=== PATIENT | female | born 1995 | race Caucasian/White ===

== ENCOUNTER 2019-07-09 03:27 | Emergency (ER) | payer BC ==
[2019-07-09] MEDS ORDERED: DEXAMETHASONE SOD PHOS INJ 10 MG/1 ML VIAL IV ONE (04:57)
[2019-07-09] MEDS ORDERED: KETOROLAC TROMETHAMINE INJ/PF 30 MG/1 ML SDV IV ONE (04:57)
--- NOTE | 2019-07-09 04:59 | ER Document Report ---
ED ENT - General Chief Complaint: Other Stated Complaint: THROAT ABSTRUCTION Time Seen by Provider: 07/09/19 04:49 Notes: Patient is a 23-year-old female that comes to the emergency department for chief complaint of sore throat and the sensation of something going down her throat. She states she checked the mirror and her uvula looked bigger, red, and swollen. She denies fever/chills, itching, difficulty breathing or swallowing. She denies any past medical history except for ADHD, medicated. She denies . She denies any surgeries. Mother at bedside. TRAVEL OUTSIDE OF THE [place] IN LAST 30 DAYS: No - Related Data Allergies/Adverse Reactions: No Known Allergies Allergy (Unverified 07/09/19 05:18) Past Medical History - General Information source: Patient - Social History Smoking Status: Never Smoker Frequency of alcohol use: None Drug Abuse: None Lives with: Family Family History: Reviewed & Not Pertinent - Medical History Medical History: Negative - Immunizations Hx Diphtheria, Pertussis, Tetanus Vaccination: Yes Review of Systems - Review of Systems Constitutional: No symptoms reported EENT: See HPI Cardiovascular: No symptoms reported Respiratory: No symptoms reported Gastrointestinal: No symptoms reported Genitourinary: No symptoms reported Female Genitourinary: No symptoms reported Musculoskeletal: No symptoms reported Skin: No symptoms reported Hematologic/Lymphatic: No symptoms reported Neurological/Psychological: No symptoms reported Physical Exam - Vital signs Vitals: Temp Pulse Resp BP Pulse Ox 98.0 F 84 16 131/75 H 98 07/09/19 03:32 07/09/19 03:32 07/09/19 03:32 07/09/19 03:32 07/09/19 03:32 - Notes Notes: GENERAL: Alert, interacts well. She is leaning forward a lot. HEAD: Normocephalic, atraumatic. EYES: Pupils equal, round, and reactive to light. Extraocular movements intact. ENT: Oral mucosa moist, tongue midline. Uvula is slightly swollen and elongated with erythema. Soft palate, tonsils unremarkable, airways patent, oral/pharyngeal exam is otherwise unremarkable NECK: Full range of motion. Supple. Trachea midline. LUNGS: Clear to auscultation bilaterally, no wheezes, rales, or rhonchi. No respiratory distress. HEART: Regular rate and rhythm. No murmur ABDOMEN: Soft, non-tender. Non-distended. EXTREMITIES: Moves all 4 extremities spontaneously. No edema, normal radial and dorsalis pedis pulses bilaterally. No cyanosis. BACK: no cervical, thoracic, lumbar midline tenderness. No saddle anesthesia, normal distal neurovascular exam. NEUROLOGICAL: Alert and oriented x3. Normal speech. Cranial nerves II through XII grossly intact. SKIN: Warm, dry, normal turgor. No rashes or lesions noted. Course - Re-evaluation Re-evalutation: On initial presentation patient has erythema and some swelling of the uvula, however she is not in any distress, she is swallowing easily, she is tolerating her secretions well, she denies shortness of breath or difficulty breathing. Oral pharyngeal exam otherwise unremarkable. She has no fever. Patient was discussed with Dr. Muhammad. Patient was given dexamethasone, Toradol, and Unasyn. On first evaluation she did not notice a change, however she states that before she was given the Benadryl and Pepcid subsequently she started feeling improvement. Strep is neg ative, CBC unremarkable, test is negative. Most likely she is feeling the benefits of the dexamethasone, however the appearance is infectious and this is not appear to be angioedema. As result I discussed options with patient. She elects for penicillin G IM, she was given this, she will be taking cetirizine at home, I discussed follow-up and strict return precautions. Patient states satisfaction and agreement with plan. - Vital Signs Vital signs: Temp Pulse Resp BP Pulse Ox 97.7 F 65 16 116/64 98 07/09/19 05:25 07/09/19 05:25 07/09/19 05:25 07/09/19 05:25 07/09/19 05:25 - Laboratory Result Diagrams: 07/09/19 05:20 Discharge - Discharge Clinical Impression: Uvulitis Condition: Stable Disposition: HOME, SELF-CARE Additional Instructions: You have uvulitis, inflammation/infection of the uvula. You have been covered for suspected infection, you have been given dexamethasone and this should last in your system for a few days, however I also recommend that you take [id number] cetirizine because the exact cause is uncertain at this time. Follow-up with primary care. Return if you worsen including difficulty swallowing or breathing, return for increased pain, fever/chills, or any other concerning or worsening symptoms.
[2019-07-09 05:36] LABS: HEMATOCRIT 41.7 % (36.0-47.0); HEMOGLOBIN 14.1 g/dL (12.0-15.5); LYMPHOCYTES % (AUTO) 33.2 % (13-45); MEAN CORPUSCULAR HEMOGLOBIN 30.8 pg (27.0-33.4); MEAN CORPUSCULAR HGB CONC 33.7 g/dL (32.0-36.0); MEAN CORPUSCULAR VOLUME 91 fl (80-97); PLATELET COUNT 282 10^3/uL (150-450); RED BLOOD COUNT 4.57 10^6/uL (3.72-5.28); RED CELL DISTRIBUTION WIDTH 13.8 % (11.5-14.0); SEGMENTED NEUTROPHILS % (AUTO) 53.7 % (42-78); WHITE BLOOD COUNT 9.4 10^3/uL (4.0-10.5)
[2019-07-09 05:37] LABS: ABSOLUTE EOSINOPHILS # (AUTO) 0.3 10^3/uL (0.0-0.6); ABSOLUTE LYMPHOCYTES (AUTO) 3.1 10^3/uL (0.5-4.7); ABSOLUTE MONOCYTES (AUTO) 0.9 10^3/uL (0.1-1.4); BASOPHILS % (AUTO) 0.4 % (0-2); EOSINOPHILS % (AUTO) 3.5 % (0-6); MONOCYTES % (AUTO) 9.2 % (3-13); TOTAL CELLS COUNTED % (AUTO) 100 %
[2019-07-09] MEDS ORDERED: AMPICILLIN SOD/SULBACTAM 3 GM VIAL IV ONE (05:51)
[2019-07-09] MEDS ORDERED: DIPHENHYDRAMINE HCL 50 MG/ML VIAL IV ONE (05:59)
[2019-07-09] MEDS ORDERED: FAMOTIDINE INJ/PF 20 MG/2 ML SDV IV ONE (06:00)
[2019-07-09] MEDS ORDERED: PENICILLIN G BENZATHINE 1.2 MILLION UNIT/2 ML DISP.SYRIN IM ONE (06:56)
[2019-07-09 07:22] VITALS: BP 113/67
== END 2019-07-09 07:22 | disposition home or self-care (01) ==
LOC: ER 03:27
DX: K12.2 Cellulitis and abscess of mouth (principal); F90.9 Attention-deficit hyperactivity disorder, unspecified type; Z79.899 Other long term (current) drug therapy
CPT/HCPCS: 36415; 87070; 87880; 84703; 85025; 87077; J1200; J0295; J1885; J0561; S0028; J1100